=== PATIENT | male | born 1940 ===

== ENCOUNTER 2016-08-13 04:30 | Emergency (ER) | payer OTHER ==
[~2016-08-13] VITALS: Ht 177.8 cm; Wt 99.2 kg
[~2016-08-13 04:30] MED LIST: AML5T PO; CIPR-226 PO
[2016-08-13] MEDS ORDERED: blood pressure PO (04:58)
[2016-08-13] MEDS ORDERED: ED- TRAMADOL 50 MG (ULTRAM) 6 TABLETS/BTL PO ONE (05:10)
[2016-08-13] MEDS ORDERED: HYDR-3702 PO (05:13)
--- NOTE | 2016-08-13 05:22 | NUR ---
Went over instructions with patient very carefully a couple of times on how to take medications and how often. Patient verbalized understanding.
[2016-08-13 05:42] VITALS: BP 195/91
== END 2016-08-13 05:25 | disposition home or self-care (01) ==
LOC: ED 04:31
DX: S23.3XXA Sprain of ligaments of thoracic spine, initial encounter (principal); W19.XXXA Unspecified fall, initial encounter
CPT/HCPCS: 99282; 99283

== ENCOUNTER → 2016-08-21 | Outpatient (REF) | payer OTHER ==
[~2016-08-21] MED LIST changes: +HYDR-3702 PO; +blood pressure PO
[2016-08-21 17:04] LABS: ALBUMIN 3.9 g/dL (3.4-5.0); CALCULATED IONIZED CALCIUM 4.1 mg/dL (3.8-4.6); TOTAL PROTEIN 7.1 g/dL (6.4-8.5)
[2016-08-21 17:05] LABS: BASOPHILS % (AUTO) 1 % (0-2); EOSINOPHILS # (AUTO) 0.2 10^3uL; EOSINOPHILS % (AUTO) 2 % (0-4); MEAN CORPUSCULAR HEMOGLOBIN 29.8 PG (26.0-34.0); MEAN CORPUSCULAR HGB CONC 34.3 g/dL (31.0-37.0); MEAN CORPUSCULAR VOLUME 87 FL (80-100); MONOCYTES # (AUTO) 0.6 X10^3; MONOCYTES % (AUTO) 9 % (3-11); NEUTROPHILS # (AUTO) 4.8 X10^3; NEUTROPHILS % (AUTO) 72 % (51-67); PLATELET COUNT 152 10^3uL (150-450); WHITE BLOOD COUNT 6.64 10^3uL (4.0-11.0)
[2016-08-21 17:11] LABS: ANION GAP 14.4 MEQ/L (3-15)
== END ==
LOC: LAB 16:34
PROVIDERS: ATTEND Internal Medicine
DX: R53.83 Other fatigue (principal); N28.89 Other specified disorders of kidney and ureter; I10 Essential (primary) hypertension
CPT/HCPCS: 80053; 84443; 85025; 86140